=== PATIENT | female | born 1985 | race Caucasian/White ===

== ENCOUNTER → 2016-07-02 | Outpatient (REF) | payer OTHER ==
[2016-07-02 18:59] LABS: BASO % 0.2 % (0.0-1.0); EOS # 0.1 K/mm3 (0.0-0.50); EOS % 1.1 % (0.0-3.0); LARGE UNSTAINED CELL # 0.2 K/mm3 (0.0-0.4); LARGE UNSTAINED CELL % 1.3 % (0.0-4.0); LYMPH # 3.1 K/mm3 (1.5-6.5); MEAN CORPUSCULAR HEMOGLOBIN 28.4 pg (27.0-33.0); MEAN CORPUSCULAR HGB CONC 32.1 g/dl (32.0-36.5); MEAN CORPUSCULAR VOLUME 88.5 fl (80.0-96.0); MONO # 0.3 K/mm3 (0.0-0.8); MONO % 2.2 % (0.0-5.0); NEUTROPHILS # 7.4 K/mm3 (1.8-7.7); NEUTROPHILS % 67.2 % (36.0-66.0); PLATELET COUNT, AUTOMATED 279 k/mm3 (150-450); RED CELL DISTRIBUTION WIDTH 13.3 % (11.5-14.5); WHITE BLOOD COUNT 11.1 K/mm3 (4.0-10.0)
[2016-07-03 08:43] LABS: HIV SCRN NEGATIVE (NEGATIVE); HIV SCRN1 NEGATIVE (NEGATIVE)
[2016-07-03 08:44] LABS: CONTROL LINE INT CTR LINE PRESENT
[2016-07-04 11:02] LABS: HBsAg Prenatal NEGATIVE (NEGATIVE)
== END ==
LOC: M LABSMT 17:25
PROVIDERS: ATTEND Advanced Practice Midwife
DX: Z34.81 Encounter for supervision of other normal pregnancy, first trimester (principal)

== ENCOUNTER → 2016-07-09 | Outpatient (CLI) | payer OTHER ==
[2016-07-09 18:32] LABS: FREE T4 0.8 NG/DL (0.76-1.46)
== END ==
LOC: M SMT 14:38
PROVIDERS: ATTEND Advanced Practice Midwife
DX: Z34.81 Encounter for supervision of other normal pregnancy, first trimester (principal); E03.9 Hypothyroidism, unspecified

== ENCOUNTER → 2016-08-06 | Outpatient (CLI) | payer OTHER ==
[2016-08-06 18:31] LABS: THYROXINE (T4) 12.3 UG/DL (4.5-12.0)
== END ==
LOC: M SMT 14:20
PROVIDERS: ATTEND Advanced Practice Midwife
DX: E03.9 Hypothyroidism, unspecified (principal); Z31.430 Encounter of female for testing for genetic disease carrier status for procreative management

== ENCOUNTER → 2016-08-21 | Outpatient (CLI) | payer OTHER ==
--- NOTE | 2016-08-21 16:10 | REP ---
Clinical: Anatomical evaluation. Comparison: None . Findings: Examination demonstrates a single live intrauterine in breech presentation. motion is identified by technologist. Placenta is noted posterior fundal and grade zero without evidence for placenta previa or abruption. Amniotic fluid volume is normal. Cervix measures 5.0 cm in length and appears closed. Nuchal cord cannot be excluded. Gestational age by LMP 19 weeks 2 days with VENANCIO 01/13/2017 . Gestational age by current measurements 18 weeks 6 days with VENANCIO 01/16/2017 . FHR equals 150 beats per minute. BPD 3.9 cm 17 weeks 6 days HC 15.0 cm 18 weeks 0 days AC 14.3 cm 19 weeks 5 days FL 3.2 cm 19 weeks 6 days HL 2.8 cm 19 weeks 1 day HC/AC ratio 1.05 Estimated weight 297 grams ( 54th percentile). Anatomical assessment demonstrates normal structures including cranium, choroid plexus, cavum, cerebellum/posterior fossa, diaphragm, stomach, cord insertion/three-vessel cord, bladder, and extremities. Limited evaluation of the facial features, lungs, heart/ventricular outflow tracts, kidneys, spine and feet noted. Impression: 1. Single live intrauterine in breech presentation demonstrating appropriate interval growth. 2. While no gross anatomical abnormalities are identified, limitations as described above may warrant reevaluation and follow-up. 3. Nuchal cord cannot be excluded. Signed by Bob Travis MD 08/21/2016 04:01 P
== END ==
LOC: M RAD 14:04
PROVIDERS: ATTEND Advanced Practice Midwife
DX: O32.1XX0 Maternal care for breech presentation, not applicable or unspecified (principal); Z3A.19 19 weeks gestation of pregnancy

== ENCOUNTER → 2016-08-21 | Outpatient (CLI) | payer OTHER | LOC: M SMT 15:45 | PROVIDERS: ATTEND Advanced Practice Midwife | DX: Z36 Encounter for antenatal screening of mother (principal) ==